=== PATIENT | female | born 1945 | race Two or more races ===

== ENCOUNTER 2019-01-12 08:19 | Emergency (ER) | payer MEDICARE ==
[~2019-01-12] VITALS: Ht 162.6 cm; Wt 89.1 kg
[2019-01-12] MEDS ORDERED: PROP10TA73 PO (08:39)
[2019-01-12] MEDS ORDERED: OXYB5XL PO (08:39)
[2019-01-12] MEDS ORDERED: OMEP20 PO (08:39)
[2019-01-12] MEDS ORDERED: ASPI81 PO (08:39)
[2019-01-12] MEDS ORDERED: PARO20TA24 PO (08:39)
[2019-01-12] MEDS ORDERED: GLUC-147 PO (08:39)
[2019-01-12] MEDS ORDERED: LOPE1LIQ88 PO (08:39)
[2019-01-12] MEDS ORDERED: CHOL50004 PO (08:39)
[2019-01-12] MEDS ORDERED: BACITRACIN 0.9 GM PACKET OINTMENT TP ONE (09:45)
[2019-01-12] MEDS ORDERED: PERTUSS(ACELL),DIPH,TET VAC/PF 0.5 ML VIAL IM ONE (09:45)
[2019-01-12 11:25] VITALS: BP 114/60
== END 2019-01-12 11:29 | disposition home or self-care (01) ==
LOC: EMS 08:21
DX: S50.01XA Contusion of right elbow, initial encounter (principal); I10 Essential (primary) hypertension; Z79.82 Long term (current) use of aspirin; W18.09XA Striking against other object with subsequent fall, initial encounter; Y93.89 Activity, other specified; Y92.89 Other specified places as the place of occurrence of the external cause; Y99.8 Other external cause status
CPT/HCPCS: 90471; 90715